=== PATIENT | male | born 1970 | race Caucasian/White ===

== ENCOUNTER → 2023-07-21 | Outpatient (CLI) | payer OTHER ==
[~2023-07-21] MED LIST: AMLO10 PO; ASPI81CH PO; ATOR40TA PO; BENAML10/2 PO; BIMA.03OPS OD; CARV6.25 PO; CEPH500 PO; CIPR500 PO; Coreg12.5 MG PO; DORZOPSO BOTHEYES; DOXY100 PO; FURO20 PO; HYDACE5 PO; HYDCHL25 PO; Klor-Con 1010 MEQ PO; LATANOPROST2.5 ML BOTHEYES; LISI20 PO; METO100ER PO; METR500 PO; NEBI10; POTCHL10ER PO; SPIR25 PO
== END ==
LOC: LAB 07:57 → LAB SHORT 07:57
DX: B35.1 Tinea unguium (principal); L60.2 Onychogryphosis
CPT/HCPCS: 88304; 88312